=== PATIENT | female | born 2005 ===

== ENCOUNTER → 2025-07-31 14:31 | Outpatient (CLI) | payer OTHER, SELFPAY ==
[2025-07-31 20:48] LABS: Urine N gonorrhoeae NOT DETECTED
[2025-07-31 20:54] LABS: Urine Chlamydia NOT DETECTED
== END ==
PROVIDERS: PCP Physician Assistant Medical; Visit Provider Physician Assistant Medical
DX: N93.9 Abnormal uterine and vaginal bleeding, unspecified (principal); R10.9 Unspecified abdominal pain
CPT/HCPCS: 87086; 87491; 87591